=== PATIENT | male | born 1940 | race American Indian/Alaskan Native ===

== ENCOUNTER 2023-10-08 18:52 | Inpatient (IN) | payer MEDICARE, OTHER, SELFPAY ==
[2023-10-08 13:38] VITALS: BP 178/80
[2023-10-08 14:09] LABS: % Basophils 0.6 % (0-2); % Eosinophils 3.8 % (0-6); % Immature Granulocytes 0.4 % (0-0.5); % Lymphocytes 11.6 % (20.5-51.1); % Neutrophils 75.6 % (42.2-75.2); Absolute Eosinophils 0.2 10^3/uL (0-0.7); Absolute Lymphocytes 0.6 10^3/uL (1.2-3.4); Absolute Monocytes 0.4 10^3/uL (0.1-0.6); Hematocrit 25.7 % (39.0-52.0); Hemoglobin 8.6 g/dL (13.0-18.0); Mean Corp Hgb Conc. 33.5 g/dL (33.0-37.0); Mean Corpuscular Hgb 31.2 pg (27.0-31.0); Mean Corpuscular Volume 93.1 fL (80.0-94.0); Mean Platelet Volume 10.5 fL (7.4-10.4); Nucleated Red Blood Cells % 0 % (-); Platelet Count 150 10^3/uL (130-400); Red Blood Cell Count 2.76 10^6/uL (4.70-6.10); Red Cell Dist. Width 15.5 % (11.5-14.5); White Blood Cell Count 5.2 10^3/uL (4.8-10.8)
[2023-10-08 14:41] LABS: ALT (SGPT) 24 U/L (0-50); AST (SGOT) 36 U/L (17-59); Albumin 4.1 g/dl (3.5-5.0); Alkaline Phosphatase 74 U/L (38-126); Blood Urea Nitrogen 82 mg/dl (9-20); Calcium 10.2 mg/dl (8.4-10.2); Carbon Dioxide 29 mmol/L (22-30); Chloride 100 mmol/L (98-107); Glucose 108 mg/dl (70-99); Sodium 141 mmol/L (135-145); Total Bilirubin 0.6 mg/dl (0.2-1.3); Total Protein 6.2 g/dl (6.3-8.2); eGFR 3.28
--- NOTE | 2023-10-08 16:48 | CM ---
Received ED CM consult for new HD facility. Reviewed the chart notes and spoke with the patient at the bedside. Patient recently moved from [place] to [place]. Patient reports no DME/VN/SNF in the past. The patient has been with [facility] in [place]
for 15 years. Since he moved the [facility] facility is 10 miles from his home and he is requesting one that is within 5 miles. Patient's last HD was Sunday. Patient will need to be admitted to received HD and placement in another HD facility. CM
continues to be available to patient/family and is monitoring medical plan for needs at discharge.
Plan: Discharge to home once HD issues is resolved.
--- NOTE | 2023-10-08 17:43 | ED.GENMED ---
History of Present Illness
General
Chief Complaint: Weakness
Time Seen by Provider: 10/08/23 16:14
History of Present Illness
History of Present Illness:
83-year-old male with history of hypertension end-stage renal disease (HD MWF) presenting for hemodialysis needs. Patient relocated from [place], last dialyzed last Sunday, missed 2 sessions. [address] from [place], has no
hemodialysis session or [employer] service [employer] for follow-up. He presents for a dialysis center. He denies any chest pain breathing. He denies any recent fever or illness. He denies abdominal pain or GI symptoms. He denies additional acute medical
complaints
Phy Exam
Physical Exam
Physical Exam:
GENERAL: Alert , in no apparent distress
EYE: pupils equal and reactive
NECK: Supple, no significant adenopathy.
ENT: o/p clr, mmm.
CARDIAC: Regular rate and rhythm .
LUNGS: Clear breath sounds bilaterally, no acute respiratory distress, no wheezes/rales/rhonchi
ABDOMEN: Soft, without focal tenderness, no r/g
NEUROLOGICAL: Alert and oriented, no focal neuro deficits
SKIN: Warm and dry, skin intact.
MUSCULOSKELETAL: No edema, well perfused.
PSYCH: Normal and appropriate interaction.
Course
Orders/Labs/Results
Orders:
Orders
10/08/23 13:52
Complete Blood Count/With Diff Urgent
Comprehensive Metabolic Panel Urgent
10/08/23 14:57
ECG [Electrocardiogram (*1)] Urgent
Reason for Study: Other
Other Reason for Exam: abnormal labwork
EKG- Treatment ONCE
10/08/23 16:03
Case Management Consult ONCE
Case Management Consult: Discharge Planning
Comment: patient needs dialysis center closer to [place]. patient was going to [facility] in [place].
patient is unable to make that drive any longe. lian has not had dialysis for 6 days
Abnormal Lab Results
10/08/23
13:52
RBC 2.76 L 10^6/uL
(4.70-6.10)
Hgb 8.6 L g/dL
(13.0-18.0)
Hct 25.7 L %
(39.0-52.0)
MCH 31.2 H pg
(27.0-31.0)
RDW 15.5 H %
(11.5-14.5)
MPV 10.5 H fL
(7.4-10.4)
Absolute Lymphs (auto) 0.6 L 10^3/uL
(1.2-3.4)
Neutrophils % 75.6 H %
(42.2-75.2)
Lymphocytes % 11.6 L %
(20.5-51.1)
BUN 82 H mg/dl
(9-20)
Creatinine 13.6 H* mg/dL
(0.7-1.3)
Glucose 108 H mg/dl
(70-99)
Total Protein 6.2 L g/dl
(6.3-8.2)
10/08/23 13:52
10/08/23 13:52
Vital Signs
Initial and Last Documented VS:
Initial Vital Signs
Temp Pulse Resp BP Pulse Ox
98.4 F 77 18 178/80 98
10/08/23 13:38 10/08/23 13:38 10/08/23 13:38 10/08/23 13:38 10/08/23 13:38
Last Documented Vital Signs
Temp Pulse Resp BP Pulse Ox
98.4 F 77 18 178/80 98
10/08/23 13:38 10/08/23 13:38 10/08/23 13:38 10/08/23 13:38 10/08/23 13:38
MDM/Problems Addressed
MDM/Problems Addressed:
83-year-old male with history of end-stage renal disease presenting for hemodialysis needs. Vital signs significant for high blood pressure
On exam, patient well-appearing, no acute distress or discomfort. No clinical signs of volume overload. Plan for screening laboratory analysis, EKG, social work consultation for potential dialysis placement.
17:40-labs unremarkable. Social work unable to provide placement for patient for hemodialysis needs. Plan for observation admission for placement for hemodialysis center.
*EKG
Interpreted by ED Provider?: Yes
EKG Intrepretation Date: 10/08/23
EKG Intrepretation Time: 17:47
Interpretation: abnormal
Comparison EKG: no comparison EKG present
Heart Rate: 70
Rate: normal
Rhythm: sinus
[place]: left axis deviation
Interval: normal interval
QRS Pattern: normal QRS
Ischemia: non-specific ST changes
*Critical Care Note
Total Time (30-74mins, 75-104mins- exclusive of procedures): Not Applicable
ED Attending Note
-
Portions of this chart may have been created with voice recognition software.� Occasional wrong word or��sound alike� substitutions may have occurred due to the inherent limitations of voice recognition software.
Discharge Plan
Departure
Prescriptions:
No Action
carvedilol [Coreg] 6.25 mg Tablet
6.25 mg PO BID
atorvastatin [Lipitor] 20 mg Tablet
20 mg PO DAILY
tamsulosin [Flomax] 0.4 mg Capsule
0.4 mg PO DAILY
sertraline 50 mg Tablet
50 mg PO DAILY
sevelamer carbonate 800 mg Tablet
1,600 mg PO AC
Referrals:
UNKNOWN - PT DOES,NOT KNOW [Family Provider] -
Interventions
Interventions:
*Risk Screen - Suicide Last Done: 10/08/23 13:45
*General Assessment Last Done: 10/08/23 13:45
*Neglect/Abuse Screening Last Done: 10/08/23 13:45
ED- Fall Risk Assessment Last Done: 10/08/23 16:46
*ED COVID-19 Vaccine History Last Done: 10/08/23 16:46
ED- Cardiac Assessment Last Done: 10/08/23 16:46
ED- Neurological Assessment Last Done: 10/08/23 16:46
ED- Pulmonary Assessment Last Done: 10/08/23 16:46
Discharge Date and Time
Print Language: INDONESIAN
--- NOTE | 2023-10-08 18:04 | HPS.HSE ---
Family Physician
-
Family Physician: NOT KNOW UNKNOWN - PT DOES
Chief Complaint
-
here for HD
History of Present Illness
83-year-old male with history of hypertension end-stage renal disease (HD MWF), hyperlipidemia, hypertension, BPH now presents for dialysis needs. Patient has relocated from [place] with last dialysis session on last Sunday, in essence,
missing 2 HD sessions. Patient presents for HD set up. Otherwise denies any symptoms of shortness of breath, chest pain, fever, diarrhea. Patient hypertensive, hemoglobin 8.6. SCr - 13.6
Medical History
Past Medical History
Past Medical History: Reports HTN, Hypercholesterolemia, Renal Failure and Other (ESRD on HD, HLD, HTN, BPH)
Past Surgical History: Reports None
Social History
Tobacco: Non-smoker
Alcohol: Chronic Alcoholic
Family History
Family History: Not pertinent
Allergies / Home Medications
Allergies reflects when Allergies were last updated in [facility].
Home Medications with original date entered in [facility]
Allergy/Medication List:
Allergies
Allergy/AdvReac Type Severity Reaction Status Date / Time
No Known Allergies Allergy Unverified 10/08/23 13:38
Home Medications
atorvastatin 20 mg tablet (Lipitor) 20 mg PO DAILY 10/08/23
carvedilol 6.25 mg tablet (Coreg) 6.25 mg PO BID 10/08/23
sertraline 50 mg tablet 50 mg PO DAILY 10/08/23
sevelamer carbonate 800 mg tablet 1,600 mg PO AC 10/08/23
tamsulosin 0.4 mg capsule (Flomax) 0.4 mg PO DAILY 10/08/23
Review of Systems
-
A 12 point ROS was completed and negative except as noted: Yes
Physical Exam
Vital Signs
Vital Signs
Temp Pulse Resp BP Pulse Ox
98.4 F 77 18 178/80 98
07/01/24 13:38 10/08/23 13:38 10/08/23 13:38 10/08/23 13:38 10/08/23 13:38
Physical Exam
General: Well Developed and No Apparent Distress
HEENT: NormoCephalic
Respiratory: Clear
Cardiac: S1/S2 and Regular Rhythm
GI: Non Tender
Musculoskeletal: No Clubbing
Skin: Warm
Neuro: Awake, Alert, Oriented and AO x 3
Hematologic/Lymphatic: No Lymphadenopathy
Psych: Calm
Laboratory Results
-
10/08/23 13:52
10/08/23 13:52
Laboratory Results
Total Bilirubin 0.6 mg/dl (0.2-1.3) 10/08/23 13:52
AST 36 U/L (17-59) 10/08/23 13:52
ALT 24 U/L (0-50) 10/08/23 13:52
Alkaline Phosphatase 74 U/L (38-126) 10/08/23 13:52
Data Reviewed
-
Lab Data: Labs Reviewed by me
Impression/Plan
-
IMPRESSION:
83-year-old male with history of hypertension end-stage renal disease (HD MWF), hyperlipidemia, hypertension now presents for dialysis needs.
PLAN:
#ESRD on HD
-Renal Consulted
-F/u Hepatitis Panel, HIV
-Nephrology consulted for HD planning
-Cont Sevelamer carbonate
#Hypertension
-HD as per Renal
-Restart Coreg
#Hyperlipidemia
-statin
#Anemia
-most likely 2/2 to CKD
-F/u Iron labs, TSH
#BPH
-consult tamsulosin
#DVT ppx
hsq
[2023-10-08 19:04] VITALS: BP 182/87; BMI 21.8
[2023-10-08 20:01] LABS: Iron 80 ug/dl (49-181)
[2023-10-08 20:16] LABS: Percent Saturation 34 % (20-50); Total Iron Binding Capacity 234 ug/dl (261-462)
[2023-10-08] MEDS: COREG 6.25 MG PO (20:23)
[2023-10-08 21:08] LABS: TSH 6.94 uIU/ml (0.47-4.68)
[2023-10-08 21:09] LABS: Hepatitis B Surface Antigen Negative (Negative)
[2023-10-08 21:18] LABS: HIV Combo Negative (Negative)
[2023-10-08 21:27] LABS: Hepatitis C Antibody Negative (Negative); Vitamin B12 307 pg/ml (239-931)
--- NOTE | 2023-10-08 22:01 | PTCARENOTE ---
Patient arrived on unit @1915 via stretcher from ED, ambulate to bed with no issues. Patient AAOx3, [place], skin assessment completed. Patient denies any pain or discomfort, call cerda within reach.
[2023-10-08 22:50] LABS: Hepatitis B Surface Antibody Indeterminate
[2023-10-08 23:44] VITALS: BP 129/69
[2023-10-09] MEDS: HEPARIN SC ×4 (00:30→16:29)
[2023-10-09 06:00] VITALS: BMI 21.8
[2023-10-09 06:27] LABS: Hematocrit 23.3 % (39.0-52.0); Hemoglobin 7.8 g/dL (13.0-18.0); Mean Corp Hgb Conc. 33.5 g/dL (33.0-37.0); Mean Corpuscular Hgb 31.2 pg (27.0-31.0); Mean Corpuscular Volume 93.2 fL (80.0-94.0); Mean Platelet Volume 10.6 fL (7.4-10.4); Platelet Count 117 10^3/uL (130-400); Red Cell Dist. Width 15.2 % (11.5-14.5); White Blood Cell Count 4.6 10^3/uL (4.8-10.8)
[2023-10-09 06:52] LABS: ALT (SGPT) 19 U/L (0-50); AST (SGOT) 25 U/L (17-59); Albumin 3.2 g/dl (3.5-5.0); Alkaline Phosphatase 66 U/L (38-126); Blood Urea Nitrogen 87 mg/dl (9-20); Calcium 9.8 mg/dl (8.4-10.2); Carbon Dioxide 22 mmol/L (22-30); Chloride 105 mmol/L (98-107); Glucose 78 mg/dl (70-99); Phosphorus 4.9 mg/dl (2.5-4.5); Sodium 141 mmol/L (135-145); Total Bilirubin 0.5 mg/dl (0.2-1.3); Total Protein 5.1 g/dl (6.3-8.2)
[2023-10-09 07:02] LABS: Estimated Creatinine Clearance 3 ml/min; eGFR 2.87
[2023-10-09 07:53] VITALS: BP 186/85
[2023-10-09 08:45] VITALS: BP 175/69; PULSE 72; O2SAT 99
[2023-10-09] MEDS: COREG 6.25 MG PO ×2 (10:05→20:34)
[2023-10-09] MEDS: ZOLOFT 50 MG PO (10:05)
[2023-10-09] MEDS: FLOMAX 0.4 MG PO (10:06)
[2023-10-09] MEDS: LIPITOR 20 MG PO (10:06)
[2023-10-09] MEDS: RENVELA 1600 MG PO ×2 (10:06→16:29)
--- NOTE | 2023-10-09 10:17 | PTOTSP ---
Patient demonstrates good insight into safety with mobility, ambulation and elevations. Does not demonstrate further need for skilled therapy at this time and will be discharged from caseload.
If needs change, please re-consult.
--- NOTE | 2023-10-09 11:39 | CM ---
Addendum entered by Ave Ocampo 10/09/23 13:58:
Referral for HD sent to [facility] via [facility]. Called Max at [facility] - aware referral has been sent - will review when received
Original Note:
Case management following for d/c planning
Pt recently moved to [facility] from [place]
Previously followed for HD at [facility] in [place] and was to follow at [facility] in [place]. Per pt was informed [facility] that they had not received all of his clinical information. Came to ER
Spoke with visitor services representative at [facility]
Per rep - confirmed have not received H&P and was scheduled for 1st treatment to start on 10/09/2023
Per pt he would prefer an HD center closer to home
Spoke with Max at [facility] [phone]
Currently has open HD chairs and would be able to review clinical information and potentially accept pt
Discussed with pt and his - prefer [facility] location
CM will send demographic information and clinical information to [facility] for review
Plan - anticipate home when HD chair obtained
--- NOTE | 2023-10-09 12:52 | W.PN.HOSP.TC ---
Today's Communication/Plan
-
hd planning
add on free t4
Assessment / Plan
Assessment / Plan
Physical Exam
General: Well Developed and No Apparent Distress
HEENT: NormoCephalic
Respiratory: Clear
Cardiac: S1/S2 and Regular Rhythm
GI: Non Tender
Musculoskeletal: No Clubbing
Skin: Warm
Neuro: Awake, Alert, Oriented and AO x 3
Hematologic/Lymphatic: No Lymphadenopathy
Psych: Calm
83-year-old male with history of hypertension end-stage renal disease (HD MWF), hyperlipidemia, hypertension now presents for dialysis needs.
PLAN:
#ESRD on HD
-Renal Consulted
-F/u Hepatitis Panel, HIV
-Nephrology consulted for HD planning
-Cont Sevelamer carbonate
#Hypertension
-HD as per Renal
-Restart Coreg
#Hyperlipidemia
-statin
#Anemia
-most likely 2/2 to CKD
-f/u free t4
#BPH
-consult tamsulosin
#DVT ppx
hsq
Anticipated Discharge: 24 - 48 hours
Subjective/Interval History
-
Date of Service: October 09, 2023
no acute events
Objective Data
-
Labs:
Laboratory Results
10/09/23
05:49
WBC 4.6 L
Hgb 7.8 L
Hct 23.3 L
Plt Count 117 L D
Sodium 141
Potassium 5.0
Chloride 105
Carbon Dioxide 22
BUN 87 H
Creatinine 15.2 H*
Glucose 78
Calcium 9.8
Total Bilirubin 0.5
AST 25
ALT 19
Alkaline Phosphatase 66
Vital Signs:
Vital Signs
Temp Pulse Resp BP Pulse Ox
98.3 F 86 17 186/85 95
10/09/23 07:53 10/09/23 07:53 10/09/23 07:53 10/09/23 07:53 10/09/23 07:53
I&O
10/08/23 10/09/23 10/10/23
06:59 06:59 06:59
Intake Total 120 / 120
Balance 120 / 120
Review of Systems
-
History Source: Patient
All other systems: Not reviewed unless documented
Data Reviewed
-
Labs: Labs Reviewed by me
[2023-10-09] MEDS: RENVELA PO (13:36)
[2023-10-09] MEDS: RETACRIT 10000 UNITS IV (13:40)
--- NOTE | 2023-10-09 13:44 | PTCARENOTE ---
Patient ambulating into [facility]. Patient has no c/o pain and is eager for HD.
[2023-10-09 15:24] LABS: Free T4 1.26 ng/dl (0.78-2.19)
[2023-10-09 15:58] VITALS: BP 176/79
--- NOTE | 2023-10-09 18:28 | W.PN.NEPH.HD ---
Assessment
-
Seen on HD. no complaints. VSS< access ok
Progress Note - Hemodialysis
-
Date of Service: October 09, 2023
Duration: 3 hours
Potassium Bath: 2
Calcium Bath: 2.5
Opti-Dialyzer: 160
Ultrafiltration: Other (1kg)
Blood Flow: 400
Dialysate Flow: 600
Heparin: no
EPO: [id number] units
[2023-10-09 23:44] VITALS: BP 162/70
[2023-10-10] MEDS: HEPARIN SC ×4 (00:45→17:15)
[2023-10-10 05:35] VITALS: BMI 21.3
[2023-10-10 06:17] LABS: Hematocrit 25.1 % (39.0-52.0); Hemoglobin 8.1 g/dL (13.0-18.0); Mean Corp Hgb Conc. 32.3 g/dL (33.0-37.0); Mean Corpuscular Hgb 30.5 pg (27.0-31.0); Mean Corpuscular Volume 94.4 fL (80.0-94.0); Mean Platelet Volume 10.2 fL (7.4-10.4); Platelet Count 114 10^3/uL (130-400); Red Blood Cell Count 2.66 10^6/uL (4.70-6.10); Red Cell Dist. Width 14.8 % (11.5-14.5); White Blood Cell Count 4.3 10^3/uL (4.8-10.8)
[2023-10-10 06:55] LABS: Blood Urea Nitrogen 48 mg/dl (9-20); Calcium 9.2 mg/dl (8.4-10.2); Carbon Dioxide 31 mmol/L (22-30); Chloride 98 mmol/L (98-107); Estimated Creatinine Clearance 6 ml/min; Glucose 81 mg/dl (70-99); Potassium 4.4 mmol/L (3.5-5.1); Sodium 137 mmol/L (135-145); eGFR 5.24
[2023-10-10 07:00] VITALS: BP 158/64
[2023-10-10] MEDS: RETACRIT 10000 UNITS IV (08:46)
--- NOTE | 2023-10-10 08:54 | W.PN.HOSP.TC ---
Addendum entered and electronically signed by Ari Baird MD 10/10/23 16:03:
Pancytopenia
mild
monitor
Original Note:
Today's Communication/Plan
-
hd placement planning
hd today
Assessment / Plan
Assessment / Plan
Physical Exam
General: Well Developed and No Apparent Distress
HEENT: NormoCephalic
Respiratory: Clear
Cardiac: S1/S2 and Regular Rhythm
GI: Non Tender
Musculoskeletal: No Clubbing
Skin: Warm
Neuro: Awake, Alert, Oriented and AO x 3
Hematologic/Lymphatic: No Lymphadenopathy
Psych: Calm
83-year-old male with history of hypertension end-stage renal disease (HD MWF), hyperlipidemia, hypertension now presents for dialysis needs.
PLAN:
#ESRD on HD
-Renal Consulted
-F/u Hepatitis Panel neg
-Nephrology consulted for HD planning
-Cont Sevelamer carbonate
#Hypertension
-HD as per Renal
-Restart Coreg
#Hyperlipidemia
-statin
#Anemia
-most likely 2/2 to CKD
#BPH
-consult tamsulosin
#DVT ppx
hsq
Anticipated Discharge: Within 24 hours
Subjective/Interval History
-
Date of Service: October 10, 2023
No acute events
Objective Data
-
Labs:
Laboratory Results
10/10/23
05:54
WBC 4.3 L
Hgb 8.1 L
Hct 25.1 L
Plt Count 114 L
Sodium 137
Potassium 4.4
Chloride 98
Carbon Dioxide 31 H
BUN 48 H
Creatinine 9.2 H*
Glucose 81
Calcium 9.2
Vital Signs:
Vital Signs
Temp Pulse Resp BP Pulse Ox
98.5 F 68 18 158/64 93
10/10/23 07:00 10/10/23 07:00 10/10/23 07:00 10/10/23 07:00 10/10/23 07:00
I&O
10/09/23 10/10/23 10/11/23
06:59 06:59 06:59
Intake Total 120 / 120 780 / 780
Balance 120 / 120 780 / 780
Review of Systems
-
History Source: Patient
All other systems: Not reviewed unless documented
Data Reviewed
-
Labs: Labs Reviewed by me
--- NOTE | 2023-10-10 08:54 | PN.CDI ---
CDI
- -
CDI:
Physician Documentation Request
Admit Date: 10/08/23 18:52
Dear Doctor Brie,
Please review the following and provide your response in the progress notes.
Clinical Indicators:
Laboratory Tests
10/08/23 10/09/23 10/10/23
13:52 05:49 05:54
WBC 5.2 4.6 L 4.3 L
RBC 2.76 L 2.50 L 2.66 L
Plt Count 150 117 L D 114 L
Based on the above and your clinical assessment, please clarify in the progress notes, the appropriate diagnosis, if significant, that supports the above abnormalities and additional evaluation, monitoring and/or treatment rendered:
Pancytopenia
Other pancytopenia
Abnormal lab values, clinically insignificant
Other(please specify)
Use of terms such as suspected, likely, concern for, or probable (associated with a specific diagnosis that is being evaluated, monitored, or treated as if it exists) are acceptable and can be coded in the inpatient setting, when documented at the
time of discharge.
Thank you,
Abby Farley RN BSN CCDS
CDI Specialist
please contact via tiger text
Please use your independent medical judgment in providing your response.
--- NOTE | 2023-10-10 10:55 | W.PN.NEPH.HD ---
Assessment
-
Seen on HD. no complaints. VSS, access ok
await OP HD plans
Progress Note - Hemodialysis
-
Date of Service: October 10, 2023
Duration: 3 hours
Potassium Bath: 2
Calcium Bath: 2.5
Opti-Dialyzer: 160
Ultrafiltration: Other (1kg)
Blood Flow: 400
Dialysate Flow: 600
Heparin: no
EPO: [id number] units
[2023-10-10] MEDS: ZOLOFT 50 MG PO (11:36)
[2023-10-10] MEDS: RENVELA PO (11:36)
[2023-10-10] MEDS: RENVELA 1600 MG PO ×2 (11:36→17:16)
[2023-10-10] MEDS: FLOMAX 0.4 MG PO (11:36)
[2023-10-10] MEDS: COREG 6.25 MG PO ×2 (11:36→21:13)
[2023-10-10] MEDS: LIPITOR 20 MG PO (11:37)
--- NOTE | 2023-10-10 14:01 | CM ---
Case management following for d/c planning
Clinical information and HD sheets sent to [facility] in [facility]
Spoke with safety representative at [facility]
Discussed pts recent move to [place] and need to obtain previous records
Requesting H&P and records be sent to [facility]
Per Amy - would need to obtain from previous facility
Spoke with Kacie at [facility] - pt was not officially accepted at facility
They do have records and will fax to [facility]
Spoke with Blossom at [facility] [phone]
Have clinicals and to be reviewed by director
Plan - anticipate home when HD chair time obtained at HD facility
[2023-10-10 14:15] VITALS: BP 123/57
--- NOTE | 2023-10-10 14:19 | PTCARENOTE ---
Patient called RN into room stating he threw up in the bathroom and felt weak. RN saw watery, pink tinged emesis on the bathroom floor that he endorsed was from vomting. RN took vital signs- bp 123/57, HR 50, 98% room air, temp 97.8. Pt is walking
around room and steady on feet, he is stating as the time goes by he feels stronger. RN let hospitalist know. Pt said he 'vomits a few hours after dialysis once as week usually'. RN asked patient to let her know if he feels sick again. Call cerda
within reach.
[2023-10-10 15:00] VITALS: BP 94/60
[2023-10-10 23:44] VITALS: BP 153/54
[2023-10-11] MEDS: HEPARIN 5000 UNITS SC ×3 (01:16→17:05)
[2023-10-11 06:00] VITALS: BMI 20.5
[2023-10-11 06:09] LABS: Hematocrit 26.8 % (39.0-52.0); Hemoglobin 9.1 g/dL (13.0-18.0); Mean Corpuscular Hgb 30.8 pg (27.0-31.0); Mean Corpuscular Volume 90.8 fL (80.0-94.0); Mean Platelet Volume 10.2 fL (7.4-10.4); Platelet Count 128 10^3/uL (130-400); Red Blood Cell Count 2.95 10^6/uL (4.70-6.10); Red Cell Dist. Width 14.6 % (11.5-14.5); White Blood Cell Count 4.9 10^3/uL (4.8-10.8)
[2023-10-11 06:22] LABS: Blood Urea Nitrogen 29 mg/dl (9-20); Calcium 9.2 mg/dl (8.4-10.2); Carbon Dioxide 32 mmol/L (22-30); Chloride 96 mmol/L (98-107); Estimated Creatinine Clearance 8 ml/min; Glucose 85 mg/dl (70-99); Potassium 3.9 mmol/L (3.5-5.1); Sodium 136 mmol/L (135-145); eGFR 7.95
[2023-10-11 07:30] VITALS: BP 186/78
[2023-10-11] MEDS: RENVELA 1600 MG PO ×3 (08:46→17:05)
[2023-10-11] MEDS: FLOMAX 0.4 MG PO (08:46)
[2023-10-11] MEDS: LIPITOR 20 MG PO (08:46)
[2023-10-11] MEDS: ZOLOFT 50 MG PO (08:47)
[2023-10-11] MEDS: COREG 6.25 MG PO ×2 (08:47→21:15)
--- NOTE | 2023-10-11 09:05 | W.PN.HOSP.TC ---
Today's Communication/Plan
-
Start Nifedipine
OP HD planning
Assessment / Plan
Assessment / Plan
Physical Exam
General: Well Developed and No Apparent Distress
HEENT: NormoCephalic
Respiratory: Clear
Cardiac: S1/S2 and Regular Rhythm
GI: Non Tender
Musculoskeletal: No Clubbing
Skin: Warm
Neuro: Awake, Alert, Oriented and AO x 3
Hematologic/Lymphatic: No Lymphadenopathy
Psych: Calm
83-year-old male with history of hypertension end-stage renal disease (HD MWF), hyperlipidemia, hypertension now presents for dialysis needs.
PLAN:
#ESRD on HD
-Renal Consulted
-F/u Hepatitis Panel neg
-Nephrology consulted for HD planning
-Cont Sevelamer carbonate
#Hypertension
-HD as per Renal
-Restart Coreg
-Start Nifedipine
#Hyperlipidemia
-statin
#Anemia
-most likely 2/2 to CKD
#BPH
-consult tamsulosin
#DVT ppx
hsq
Anticipated Discharge: 24 - 48 hours
Subjective/Interval History
-
Date of Service: October 11, 2023
No acute events
Objective Data
-
Labs:
Laboratory Results
10/11/23
05:41
WBC 4.9
Hgb 9.1 L
Hct 26.8 L
Plt Count 128 L
Sodium 136
Potassium 3.9
Chloride 96 L
Carbon Dioxide 32 H
BUN 29 H
Creatinine 6.5 H*
Glucose 85
Calcium 9.2
Vital Signs:
Vital Signs
Temp Pulse Resp BP Pulse Ox
98.4 F 75 18 186/78 98
10/11/23 07:30 10/11/23 07:30 10/11/23 07:30 10/11/23 07:30 10/11/23 07:30
I&O
10/10/23 10/11/23 10/12/23
06:59 06:59 06:59
Intake Total 780 / 780 720 / 720
Balance 780 / 780 720 / 720
Review of Systems
-
History Source: Patient
All other systems: Not reviewed unless documented
Data Reviewed
-
Labs: Labs Reviewed by me
--- NOTE | 2023-10-11 10:31 | W.PN.NEPH.PH ---
Today's Communication / Plan
-
Dialysis tomorrow
Assessment/Plan
-
ESRD
Hyperphosphatemia
Hypertension
Anemia
BPH
Dyslipidemia
Plan:
HD tomorrow, orders provided
Maintain sevelamer for hyperphosphatemia
Maintain carvedilol and nifedipine for labile hypertension
ALETA therapy titrated for anemia
-
-
Date of Service: October 11, 2023
CC / HPI / ROS
-
Chief Complaint:
ESRD
History of Present Illness:
Hemodynamically labile on antihypertensives
End-stage renal disease on Sunday schedule
Review of Systems:
No chest pain or shortness of breath
Labs
-
Labs:
WBC 4.9 10^3/uL (4.8-10.8) 10/11/23 05:41
RBC 2.95 10^6/uL (4.70-6.10) L 10/11/23 05:41
Hgb 9.1 g/dL (13.0-18.0) L 10/11/23 05:41
Hct 26.8 % (39.0-52.0) L 10/11/23 05:41
Plt Count 128 10^3/uL (130-400) L 10/11/23 05:41
Sodium 136 mmol/L (135-145) 10/11/23 05:41
Potassium 3.9 mmol/L (3.5-5.1) 10/11/23 05:41
Chloride 96 mmol/L (98-107) L 10/11/23 05:41
Carbon Dioxide 32 mmol/L (22-30) H 10/11/23 05:41
BUN 29 mg/dl (9-20) H 10/11/23 05:41
Creatinine 6.5 mg/dL (0.7-1.3) H* 10/11/23 05:41
eGFR 7.95 10/11/23 05:41
Glucose 85 mg/dl (70-99) 10/11/23 05:41
Calcium 9.2 mg/dl (8.4-10.2) 10/11/23 05:41
Phosphorus 4.9 mg/dl (2.5-4.5) H 10/09/23 05:49
Albumin 3.2 g/dl (3.5-5.0) L 10/09/23 05:49
Physical Exam
-
Vital Signs:
Vital Signs
Temp Pulse Resp BP Pulse Ox
98.4 F 75 18 186/78 98
10/11/23 07:30 10/11/23 07:30 10/11/23 07:30 10/11/23 07:30 10/11/23 07:30
Cardiovascular:: Regular rate and rhythm
Respiratory:: Bilateral: CTA
Lung Excursion:: Normal
Abdomen:: Nontender and Soft
Bowel Sounds:: Normal
Extremity Edema:: None: Bilateral:
Shaw Catheter: No
[2023-10-11] MEDS: PROCARDIA XL (EXTENDED RELEASE) 30 MG PO (11:33)
[2023-10-11 15:50] VITALS: BP 138/59
[2023-10-11 23:23] VITALS: BP 185/64
[2023-10-12] MEDS: HEPARIN 5000 UNITS SC ×4 (00:09→23:13)
[2023-10-12 06:00] VITALS: BMI 20.7
[2023-10-12 06:22] LABS: Hematocrit 24.5 % (39.0-52.0); Hemoglobin 8.4 g/dL (13.0-18.0); Mean Corp Hgb Conc. 34.3 g/dL (33.0-37.0); Mean Corpuscular Hgb 31.3 pg (27.0-31.0); Mean Corpuscular Volume 91.4 fL (80.0-94.0); Mean Platelet Volume 10.6 fL (7.4-10.4); Platelet Count 127 10^3/uL (130-400); Red Blood Cell Count 2.68 10^6/uL (4.70-6.10); Red Cell Dist. Width 14.6 % (11.5-14.5); White Blood Cell Count 5.3 10^3/uL (4.8-10.8)
[2023-10-12 06:51] LABS: Blood Urea Nitrogen 49 mg/dl (9-20); Calcium 9.2 mg/dl (8.4-10.2); Carbon Dioxide 32 mmol/L (22-30); Chloride 95 mmol/L (98-107); Estimated Creatinine Clearance 6 ml/min; Glucose 90 mg/dl (70-99); Potassium 4.2 mmol/L (3.5-5.1); Sodium 135 mmol/L (135-145); eGFR 5.45
[2023-10-12 07:31] VITALS: BP 166/65
--- NOTE | 2023-10-12 07:55 | W.PN.HOSP.TC ---
Today's Communication/Plan
-
antihypertensive control
OP HD planning
Assessment / Plan
Assessment / Plan
Physical Exam
General: Well Developed and No Apparent Distress
HEENT: NormoCephalic
Respiratory: Clear
Cardiac: S1/S2 and Regular Rhythm
GI: Non Tender
Musculoskeletal: No Clubbing
Skin: Warm
Neuro: Awake, Alert, Oriented and AO x 3
Hematologic/Lymphatic: No Lymphadenopathy
Psych: Calm
83-year-old male with history of hypertension end-stage renal disease (HD MWF), hyperlipidemia, hypertension now presents for dialysis needs.
PLAN:
#ESRD on HD
-Renal Consulted
-F/u Hepatitis Panel neg
-Nephrology consulted for HD planning
-Cont Sevelamer carbonate
#Hypertension
-HD as per Renal
-Restart Coreg
-Start Nifedipine
#Hyperlipidemia
-statin
#Anemia
-most likely 2/2 to CKD
#BPH
-consult tamsulosin
#DVT ppx
hsq
Anticipated Discharge: Within 24 hours
Subjective/Interval History
-
Date of Service: October 12, 2023
no acute events
Objective Data
-
Labs:
Laboratory Results
10/12/23
05:49
WBC 5.3
Hgb 8.4 L
Hct 24.5 L
Plt Count 127 L
Sodium 135
Potassium 4.2
Chloride 95 L
Carbon Dioxide 32 H
BUN 49 H
Creatinine 8.9 H*
Glucose 90
Calcium 9.2
Vital Signs:
Vital Signs
Temp Pulse Resp BP Pulse Ox
97.9 F 64 16 166/65 95
10/12/23 07:31 10/12/23 07:31 10/12/23 07:31 10/12/23 07:31 10/12/23 07:31
I&O
10/11/23 10/12/23 10/13/23
06:59 06:59 06:59
Intake Total 720 / 720 600 / 600
Balance 720 / 720 600 / 600
Review of Systems
-
History Source: Patient
All other systems: Not reviewed unless documented
Data Reviewed
-
Labs: Labs Reviewed by me
[2023-10-12] MEDS: RENVELA PO (08:12)
--- NOTE | 2023-10-12 08:50 | W.PN.NEPH.HD ---
Assessment
-
Patient seen on dialysis
Systolic blood pressure stable on dialysis
Possible discharge today after dialysis if outpatient clinic arrangements completed
Progress Note - Hemodialysis
-
Date of Service: October 12, 2023
Duration: 3 hours
Potassium Bath: 2
Calcium Bath: 2.5
Opti-Dialyzer: Other
Ultrafiltration: Other (none)
Blood Flow: 400
Dialysate Flow: 600
Heparin: none
EPO: 10K
[2023-10-12] MEDS: RETACRIT 10000 UNITS IV (09:04)
[2023-10-12] MEDS: LIPITOR 20 MG PO (11:12)
[2023-10-12] MEDS: FLOMAX 0.4 MG PO (11:12)
[2023-10-12] MEDS: PROCARDIA XL (EXTENDED RELEASE) 30 MG PO (11:12)
[2023-10-12] MEDS: RENVELA 1600 MG PO ×3 (11:12→17:47)
[2023-10-12] MEDS: COREG 6.25 MG PO ×2 (11:12→20:27)
[2023-10-12] MEDS: ZOLOFT 50 MG PO (11:13)
--- NOTE | 2023-10-12 12:55 | CM ---
Addendum entered by Ave Ocampo 10/12/23 16:10:
Spoke with Blossom to check status of HD chair
Remains under review per Blossom at [facility]
Pt aware
Original Note:
Case management following for d/c planning
Called Blossom at [facility] for update regarding HD chair
Reports she will check on status - under review by medical technologist and return call
Plan - anticipate d/c to home when OP HD chair obtained
[2023-10-12 15:15] VITALS: BP 128/47
--- NOTE | 2023-10-12 18:13 | PTCARENOTE ---
Patient is frustrated and discouraged today. He is desperate to go home, but still waiting for HD approval at outpatient site. Patient is independent in room. Much emotional support given.
[2023-10-12 23:00] VITALS: BP 142/67
[2023-10-13 06:00] VITALS: BMI 20.3
[2023-10-13 07:00] VITALS: BP 154/65
[2023-10-13] MEDS: LIPITOR 20 MG PO (09:13)
[2023-10-13] MEDS: RENVELA 1600 MG PO ×2 (09:13→16:52)
[2023-10-13] MEDS: HEPARIN 5000 UNITS SC ×2 (09:13→16:52)
[2023-10-13] MEDS: FLOMAX 0.4 MG PO (09:13)
[2023-10-13] MEDS: COREG 6.25 MG PO ×2 (09:14→20:13)
[2023-10-13] MEDS: ZOLOFT 50 MG PO (09:14)
[2023-10-13] MEDS: PROCARDIA XL (EXTENDED RELEASE) 30 MG PO (10:04)
[2023-10-13 10:25] LABS: Hematocrit 28.1 % (39.0-52.0); Hemoglobin 9.1 g/dL (13.0-18.0); Mean Corp Hgb Conc. 32.4 g/dL (33.0-37.0); Mean Corpuscular Hgb 30.4 pg (27.0-31.0); Mean Platelet Volume 10.4 fL (7.4-10.4); Platelet Count 153 10^3/uL (130-400); Red Blood Cell Count 2.99 10^6/uL (4.70-6.10); Red Cell Dist. Width 14.6 % (11.5-14.5)
--- NOTE | 2023-10-13 10:33 | W.PN.NEPH.PH ---
Today's Communication / Plan
-
Observe
Discharge planning in progress
Next dialysis will be on Sunday
Assessment/Plan
-
ESRD
Hyperphosphatemia
Hypertension
Anemia
BPH
Dyslipidemia
Plan:
HD Sunday, preferably at [facility] once approval obtained
Maintain sevelamer for hyperphosphatemia
Maintain carvedilol and nifedipine for labile hypertension
ALETA therapy titrated for anemia
-
-
Date of Service: October 13, 2023
CC / HPI / ROS
-
Chief Complaint:
ESRD
History of Present Illness:
Hemodynamically stable on antihypertensives
End-stage renal disease on Sunday schedule
Review of Systems:
No chest pain or shortness of breath
Labs
-
Labs:
WBC 4.0 10^3/uL (4.8-10.8) L 10/13/23 09:50
RBC 2.99 10^6/uL (4.70-6.10) L 10/13/23 09:50
Hgb 9.1 g/dL (13.0-18.0) L 10/13/23 09:50
Hct 28.1 % (39.0-52.0) L 10/13/23 09:50
Plt Count 153 10^3/uL (130-400) D 10/13/23 09:50
eGFR 5.45 10/12/23 05:49
Phosphorus 4.9 mg/dl (2.5-4.5) H 10/09/23 05:49
Albumin 3.2 g/dl (3.5-5.0) L 10/09/23 05:49
Physical Exam
-
Vital Signs:
Vital Signs
Temp Pulse Resp BP Pulse Ox
98.1 F 69 16 154/65 96
10/13/23 07:00 10/13/23 07:00 10/13/23 07:00 10/13/23 07:00 10/13/23 07:00
Cardiovascular:: Regular rate and rhythm
Respiratory:: Bilateral: CTA
Lung Excursion:: Normal
Abdomen:: Nontender and Soft
Bowel Sounds:: Normal
Extremity Edema:: None: Bilateral:
Shaw Catheter: No
[2023-10-13 11:13] LABS: Blood Urea Nitrogen 34 mg/dl (9-20); Calcium 9.8 mg/dl (8.4-10.2); Carbon Dioxide 31 mmol/L (22-30); Chloride 95 mmol/L (98-107); Estimated Creatinine Clearance 7 ml/min; Glucose 90 mg/dl (70-99); Sodium 136 mmol/L (135-145); eGFR 7.15
[2023-10-13] MEDS: RENVELA PO (12:52)
--- NOTE | 2023-10-13 12:54 | W.PN.HOSP.TC ---
Today's Communication/Plan
-
OP HD planning
Assessment / Plan
Assessment / Plan
Physical Exam
General: Well Developed and No Apparent Distress
HEENT: NormoCephalic
Respiratory: Clear
Cardiac: S1/S2 and Regular Rhythm
GI: Non Tender
Musculoskeletal: No Clubbing
Skin: Warm
Neuro: Awake, Alert, Oriented and AO x 3
Hematologic/Lymphatic: No Lymphadenopathy
Psych: Calm
83-year-old male with history of hypertension end-stage renal disease (HD MWF), hyperlipidemia, hypertension now presents for dialysis needs.
PLAN:
#ESRD on HD
-Renal Consulted
-F/u Hepatitis Panel neg
-Nephrology consulted for HD planning
-Cont Sevelamer carbonate
#Hypertension
-HD as per Renal
-Restart Coreg
-Start Nifedipine
#Hyperlipidemia
-statin
#Anemia
-most likely 2/2 to CKD
#BPH
-consult tamsulosin
#DVT ppx
hsq
Anticipated Discharge: 24 - 48 hours
Subjective/Interval History
-
Date of Service: October 13, 2023
No acute events overnight
Objective Data
-
Labs:
Laboratory Results
10/13/23
09:50
WBC 4.0 L
Hgb 9.1 L
Hct 28.1 L
Plt Count 153 D
Sodium 136
Potassium 4.0
Chloride 95 L
Carbon Dioxide 31 H
BUN 34 H
Creatinine 7.1 H*
Glucose 90
Calcium 9.8
Vital Signs:
Vital Signs
Temp Pulse Resp BP Pulse Ox
98.1 F 69 16 154/65 96
10/13/23 07:00 10/13/23 07:00 10/13/23 07:00 10/13/23 07:00 10/13/23 07:00
I&O
10/12/23 10/13/23 10/14/23
06:59 06:59 06:59
Intake Total 600 / 600 840 / 840
Balance 600 / 600 840 / 840
Review of Systems
-
History Source: Patient
All other systems: Not reviewed unless documented
Data Reviewed
-
Labs: Labs Reviewed by me
[2023-10-13 15:00] VITALS: BP 166/67
[2023-10-13 23:00] VITALS: BP 157/65
[2023-10-14] MEDS: HEPARIN 5000 UNITS SC ×4 (00:14→23:23)
[2023-10-14 05:31] LABS: Hematocrit 25.9 % (39.0-52.0); Hemoglobin 8.7 g/dL (13.0-18.0); Mean Corp Hgb Conc. 33.6 g/dL (33.0-37.0); Mean Corpuscular Hgb 31.2 pg (27.0-31.0); Mean Corpuscular Volume 92.8 fL (80.0-94.0); Mean Platelet Volume 9.7 fL (7.4-10.4); Platelet Count 156 10^3/uL (130-400); Red Blood Cell Count 2.79 10^6/uL (4.70-6.10); Red Cell Dist. Width 14.4 % (11.5-14.5); White Blood Cell Count 4.8 10^3/uL (4.8-10.8)
[2023-10-14 05:59] LABS: Blood Urea Nitrogen 48 mg/dl (9-20); Calcium 9.6 mg/dl (8.4-10.2); Carbon Dioxide 28 mmol/L (22-30); Chloride 99 mmol/L (98-107); Estimated Creatinine Clearance 5 ml/min; Glucose 101 mg/dl (70-99); Potassium 4.1 mmol/L (3.5-5.1); Sodium 138 mmol/L (135-145); eGFR 5.45
[2023-10-14 06:00] VITALS: BMI 20.3
[2023-10-14 07:00] VITALS: BP 156/63
[2023-10-14] MEDS: LIPITOR 20 MG PO (08:55)
[2023-10-14] MEDS: COREG 6.25 MG PO ×2 (08:55→20:18)
[2023-10-14] MEDS: ZOLOFT 50 MG PO (08:55)
[2023-10-14] MEDS: PROCARDIA XL (EXTENDED RELEASE) 30 MG PO (08:55)
[2023-10-14] MEDS: FLOMAX 0.4 MG PO (08:55)
[2023-10-14] MEDS: RENVELA 1600 MG PO ×2 (09:03→12:54)
--- NOTE | 2023-10-14 11:11 | W.PN.NEPH.PH ---
Today's Communication / Plan
-
Dialysis tomorrow
Assessment/Plan
-
Impression
ESRD (MWF)
Hyperphosphatemia
Hypertension
Anemia
BPH
Dyslipidemia
Plan:
HD Sunday, preferably at [facility] once approval obtained
Maintain sevelamer for hyperphosphatemia
Maintain carvedilol and nifedipine for labile hypertension
ALETA therapy titrated for anemia
-
-
Date of Service: October 14, 2023
CC / HPI / ROS
-
Chief Complaint:
ESRD
History of Present Illness:
Hemodynamically stable on antihypertensives
End-stage renal disease on Sunday schedule
Review of Systems:
No chest pain or shortness of breath
Labs
-
Labs:
WBC 4.8 10^3/uL (4.8-10.8) 10/14/23 05:15
RBC 2.79 10^6/uL (4.70-6.10) L 10/14/23 05:15
Hgb 8.7 g/dL (13.0-18.0) L 10/14/23 05:15
Hct 25.9 % (39.0-52.0) L 10/14/23 05:15
Plt Count 156 10^3/uL (130-400) 10/14/23 05:15
Sodium 138 mmol/L (135-145) 10/14/23 05:15
Potassium 4.1 mmol/L (3.5-5.1) 10/14/23 05:15
Chloride 99 mmol/L (98-107) 10/14/23 05:15
Carbon Dioxide 28 mmol/L (22-30) 10/14/23 05:15
BUN 48 mg/dl (9-20) H 10/14/23 05:15
Creatinine 8.9 mg/dL (0.7-1.3) H* 10/14/23 05:15
eGFR 5.45 10/14/23 05:15
Glucose 101 mg/dl (70-99) H 10/14/23 05:15
Calcium 9.6 mg/dl (8.4-10.2) 10/14/23 05:15
Phosphorus 4.9 mg/dl (2.5-4.5) H 10/09/23 05:49
Albumin 3.2 g/dl (3.5-5.0) L 10/09/23 05:49
Physical Exam
-
Vital Signs:
Vital Signs
Temp Pulse Resp BP Pulse Ox
97.9 F 71 16 156/63 97
10/14/23 07:00 10/14/23 07:00 10/14/23 07:00 10/14/23 07:00 10/14/23 07:00
Cardiovascular:: Regular rate and rhythm
Respiratory:: Bilateral: CTA
Lung Excursion:: Normal
Abdomen:: Nontender and Soft
Bowel Sounds:: Normal
Extremity Edema:: None: Bilateral:
Shaw Catheter: No
--- NOTE | 2023-10-14 14:13 | W.PN.HOSP.TC ---
Today's Communication/Plan
-
OP HD planning
Assessment / Plan
Assessment / Plan
Physical Exam
General: Well Developed and No Apparent Distress
HEENT: NormoCephalic
Respiratory: Clear
Cardiac: S1/S2 and Regular Rhythm
GI: Non Tender
Musculoskeletal: No Clubbing
Skin: Warm
Neuro: Awake, Alert, Oriented and AO x 3
Hematologic/Lymphatic: No Lymphadenopathy
Psych: Calm
83-year-old male with history of hypertension end-stage renal disease (HD MWF), hyperlipidemia, hypertension now presents for dialysis needs.
PLAN:
#ESRD on HD
-Renal Consulted
-F/u Hepatitis Panel neg
-Nephrology consulted for HD planning
-Cont Sevelamer carbonate
#Hypertension
-HD as per Renal
-Restart Coreg
-Start Nifedipine
#Hyperlipidemia
-statin
#Anemia
-most likely 2/2 to CKD
#BPH
-consult tamsulosin
#DVT ppx
hsq
Anticipated Discharge: 24 - 48 hours
Subjective/Interval History
-
Date of Service: October 14, 2023
no acute events
Objective Data
-
Labs:
Laboratory Results
10/14/23
05:15
WBC 4.8
Hgb 8.7 L
Hct 25.9 L
Plt Count 156
Sodium 138
Potassium 4.1
Chloride 99
Carbon Dioxide 28
BUN 48 H
Creatinine 8.9 H*
Glucose 101 H
Calcium 9.6
Vital Signs:
Vital Signs
Temp Pulse Resp BP Pulse Ox
97.9 F 71 16 156/63 97
10/14/23 07:00 10/14/23 07:00 10/14/23 07:00 10/14/23 07:00 10/14/23 07:00
I&O
10/13/23 10/14/23 10/15/23
06:59 06:59 06:59
Intake Total 840 / 840 1200 / 1200
Balance 840 / 840 1200 / 1200
Review of Systems
-
History Source: Patient
All other systems: Not reviewed unless documented
Data Reviewed
-
Labs: Labs Reviewed by me
[2023-10-14 15:00] VITALS: BP 135/64
[2023-10-14] MEDS: RENVELA PO (17:33)
[2023-10-14 23:15] VITALS: BP 156/62
[2023-10-15 05:28] VITALS: BMI 20.5
[2023-10-15 06:20] LABS: Hemoglobin 8.4 g/dL (13.0-18.0); Mean Corp Hgb Conc. 33.6 g/dL (33.0-37.0); Mean Corpuscular Hgb 30.7 pg (27.0-31.0); Mean Corpuscular Volume 91.2 fL (80.0-94.0); Mean Platelet Volume 10.1 fL (7.4-10.4); Platelet Count 161 10^3/uL (130-400); Red Blood Cell Count 2.74 10^6/uL (4.70-6.10); Red Cell Dist. Width 14.6 % (11.5-14.5); White Blood Cell Count 4.4 10^3/uL (4.8-10.8)
[2023-10-15 06:39] LABS: Blood Urea Nitrogen 67 mg/dl (9-20); Calcium 9.4 mg/dl (8.4-10.2); Carbon Dioxide 27 mmol/L (22-30); Chloride 97 mmol/L (98-107); Estimated Creatinine Clearance 5 ml/min; Glucose 77 mg/dl (70-99); Potassium 4.7 mmol/L (3.5-5.1); Sodium 136 mmol/L (135-145); eGFR 4.58
[2023-10-15 07:00] VITALS: BP 168/66
[2023-10-15] MEDS: RENVELA 1600 MG PO ×2 (09:27→11:25)
--- NOTE | 2023-10-15 09:58 | W.PN.HOSP.TC ---
Today's Communication/Plan
-
dispo planning
Assessment / Plan
Assessment / Plan
Physical Exam
General: Well Developed and No Apparent Distress
HEENT: NormoCephalic
Respiratory: Clear
Cardiac: S1/S2 and Regular Rhythm
GI: Non Tender
Musculoskeletal: No Clubbing
Skin: Warm
Neuro: Awake, Alert, Oriented and AO x 3
Hematologic/Lymphatic: No Lymphadenopathy
Psych: Calm
83-year-old male with history of hypertension end-stage renal disease (HD MWF), hyperlipidemia, hypertension, BPH now presents for dialysis needs. Patient has relocated from [place] with last dialysis session on last Sunday, in essence,
missing 2 HD sessions.
PLAN:
#ESRD on HD
-Renal Consulted
-F/u Hepatitis Panel neg
-Nephrology consulted for HD planning
-Cont Sevelamer carbonate
#Hypertension
-HD as per Renal
-Restart Coreg
-Start Nifedipine
#Hyperlipidemia
-statin
#Anemia
-most likely 2/2 to CKD
#BPH
-consult tamsulosin
#DVT ppx
hsq
Anticipated Discharge: Within 24 hours
Subjective/Interval History
-
Date of Service: October 15, 2023
patient frustrated he is in the hospital so long
Objective Data
-
Labs:
Laboratory Results
10/15/23
05:48
WBC 4.4 L
Hgb 8.4 L
Hct 25.0 L
Plt Count 161
Sodium 136
Potassium 4.7
Chloride 97 L
Carbon Dioxide 27
BUN 67 H
Creatinine 10.3 H*
Glucose 77
Calcium 9.4
Vital Signs:
Vital Signs
Temp Pulse Resp BP Pulse Ox
97.5 F 67 18 168/66 99
10/15/23 07:00 10/15/23 07:00 10/15/23 07:00 10/15/23 07:00 10/15/23 07:00
I&O
10/14/23 10/15/23 10/16/23
06:59 06:59 06:59
Intake Total 1200 / 1200 1080 / 1080
Balance 1200 / 1200 1080 / 1080
Review of Systems
-
History Source: Patient
All other systems: Reviewed and negative
Physical Exam
-
General: No Apparent Distress
HEENT: PERRLA
Respiratory: Clear to Auscultation; Negative Wheezes
Cardiac: S1/S2
GI: Soft, Nontender and Nondistended
Musculoskeletal: No Edema
Skin: Warm and Dry; Negative Rash
Neuro: AO x 3
Psych: Calm
Data Reviewed
-
Diagnostic Radiology: Report Reviewed by me
Labs: Labs Reviewed by me
--- NOTE | 2023-10-15 10:53 | CM ---
Addendum entered by Viky Cotton 10/15/23 11:15:
Patient updated with same information at patient request. Please fax to [facility] flow sheets from [phone].
Original Note:
ZE left multiple messages for Max liaison with [facility] and spoke with Blossom at [phone]. Per Blossom patient was just cleared and his chair time would be //sat. Patient is for HD today per chart review. CM updated patient physician.
Per Blossom since patient is for HD today his first appointment with [facility] would be at 6:50 am with arrival at 6:20am. CM will update patient and review IMM. CM will continue to follow for discharge planning needs.
--- NOTE | 2023-10-15 13:41 | W.DS.TRANS ---
DC Summary - Loaders
-
Discharge Instructions:
Discharge Diagnosis/Procedures hemodialysis
Diet Restrict fluids to 48 oz,2 Gram Sodium
Activity As tolerated
Driving Restrictions As prior to admission
Bathing Restrictions None
Instructions:
Stand-Alone Forms:
Changes to Home Medications: Yes
Discharge Medications:
DC Medications w/original date entered in [employer]
atorvastatin 20 mg tablet (Lipitor) 20 mg PO DAILY High Cholesterol 10/08/23
carvedilol 6.25 mg tablet (Coreg) 6.25 mg PO BID Heart Disease/Condition 10/08/23
sertraline 50 mg tablet 50 mg PO DAILY Depression 10/08/23
sevelamer carbonate 800 mg tablet 1,600 mg PO AC Kidney Disease 10/08/23
tamsulosin 0.4 mg capsule (Flomax) 0.4 mg PO DAILY Urinary Issue 10/08/23
nifedipine 30 mg tablet,extended release 30 mg PO DAILY #30 tabs 10/15/23
Home Medication Changes
addition of Nifedipine
Pending Results: No
--- NOTE | 2023-10-15 14:20 | W.DCSUMMARY ---
Discharge Summary
Discharge Data
Date of Admission: 10/08/23
Date of Discharge: 10/15/23
-
Pending Results: No
Hospital Course
Discharging Physician : Dr. Ayesha Tapia
Disposition : Home
Principal Discharge diagnosis : Initiation of outpatient hemodialysis
Hospital Course :
Mr. Brian Rhoades is a 83 yo man with hx essential HTN, HLD, ESRD on HW, BPH who recently moved from [place] without HD in place in [place] and presents to the ER after missing two dialysis sessions, in need for initiation of HD locally.
Triage vitals significant for hypertension. Labs with anemia, Cr 13.6, BUN 82, K 5.0, Na 141. Patient was admitted to medicine with nephrology consulting and received HD in-house. He is discharged on 10/14 after HD set up as outpatient at
[facility], he has a 6:50 AM time slot on /Sun. Patient received HD today pre-discharge.
Nicardipine added to home medication regimen for blood pressure.
Time spent on discharge was 31 minutes.
Important imaging findings :
Procedure findings :
Discharge Plan
-
Patient Disposition: Home (Routine Discharge)
Discharge Diagnosis/Procedures: hemodialysis
Diet: 2 Gram Sodium and Restrict fluids to 48 oz
Activity: As tolerated
Driving Restrictions: As prior to admission
Bathing Restrictions: None
Referrals:
UNKNOWN - PT DOES,NOT KNOW [Family Provider] - in less than 1 week
Prescriptions:
New
nifedipine 30 mg Tablet Extended Release
30 mg PO DAILY Qty: 30 0RF
Continued
carvedilol [Coreg] 6.25 mg Tablet
6.25 mg PO BID
atorvastatin [Lipitor] 20 mg Tablet
20 mg PO DAILY
tamsulosin [Flomax] 0.4 mg Capsule
0.4 mg PO DAILY
sertraline 50 mg Tablet
50 mg PO DAILY
sevelamer carbonate 800 mg Tablet
1,600 mg PO AC
Discharge Orders:
Discharge Patient (As Directed); Ordered 10/15/23
Ordered By: Ayesha Tapia
Discharge Date and Time
Print Language: SWAZI
[2023-10-15] MEDS: RETACRIT 10000 UNITS IV (14:21)
[2023-10-15 14:53] VITALS: BP 149/72
--- NOTE | 2023-10-15 15:10 | W.PN.NEPH.HD ---
Assessment
-
Seen on HD. no complaints. vss, access ok
for dc
Progress Note - Hemodialysis
-
Date of Service: October 15, 2023
Potassium Bath: 2
Calcium Bath: 2.5
Opti-Dialyzer: 160
Ultrafiltration: Other (2kg)
Blood Flow: 400
Dialysate Flow: 600
Heparin: 0
EPO: 70831 units
[2023-10-15 16:16] VITALS: BP 165/80
== END 2023-10-15 17:27 | disposition home or self-care (01) | DRG 682 ==
LOC: 3 WEST ACU 18:52
PROVIDERS: Emergency Medicine; ADMITTING PHYSICIAN Internal Medicine; ATTENDING PHYSICIAN Student in an Organized Health Care Education/Training Program; EMERGENCY PHYSICIAN Student in an Organized Health Care Education/Training Program
PROC: 5A1D70Z Performance of Urinary Filtration, Intermittent, Less than 6 Hours Per Day (ICD-10-PCS; 2023-10-09)
DX: I12.0 Hypertensive chronic kidney disease with stage 5 chronic kidney disease or end stage renal disease (principal); N18.6 End stage renal disease; D61.818 Other pancytopenia; E83.39 Other disorders of phosphorus metabolism; N40.0 Benign prostatic hyperplasia without lower urinary tract symptoms; E78.00 Pure hypercholesterolemia, unspecified; D63.1 Anemia in chronic kidney disease; Z99.2 Dependence on renal dialysis; Z79.899 Other long term (current) drug therapy
CPT/HCPCS: 80048; 80053; 82607; 82728; 83540; 83550; 84100; 84439; 84443; 85025; 85027; 86706; 86803; 87070; 87340; 87389; 93005; 97116; 97162; 97165; 99285; G0257; P9047; Q5106

== ENCOUNTER → 2023-12-13 12:55 | Outpatient (REF) | payer OTHER, SELFPAY ==
[2023-12-13 13:21] LABS: Potassium 5.6 mmol/L (3.5-5.1)
== END ==
LOC: OLAB 12:55
PROVIDERS: ATTENDING PHYSICIAN Specialist
DX: N18.6 End stage renal disease (principal)
CPT/HCPCS: 84132

== ENCOUNTER → 2024-03-24 13:53 | Outpatient (REF) | payer MEDICARE, SELFPAY | LOC: RCS 13:53 | PROVIDERS: ATTENDING PHYSICIAN Internal Medicine Cardiovascular Disease; FAMILY PHYSICIAN Family Medicine | DX: I50.22 Chronic systolic (congestive) heart failure (principal) | CPT/HCPCS: 93306 ==

== ENCOUNTER → 2024-11-28 09:11 | Outpatient (REF) | payer MEDICARE, OTHER, SELFPAY | LOC: HWRAD 09:11 | PROVIDERS: ATTENDING PHYSICIAN Family Medicine | DX: I50.22 Chronic systolic (congestive) heart failure (principal); E78.2 Mixed hyperlipidemia | CPT/HCPCS: 75571 ==

== ENCOUNTER → 2025-03-21 10:11 | Outpatient (REF) | payer MEDICARE, OTHER, SELFPAY ==
[2025-03-21 10:59] LABS: Hematocrit 31.2 % (39.0-52.0); Hemoglobin 10.3 g/dL (13.0-18.0); Mean Corp Hgb Conc. 33.0 g/dL (33.0-37.0); Mean Corpuscular Volume 93.4 fL (80.0-94.0); Nucleated Red Blood Cells % 0 % (-); Platelet Count 113 10^3/uL (130-400); Red Cell Dist. Width 17.2 % (11.5-14.5)
[2025-03-21 11:56] LABS: PSA, Total - Screen 0.90 ng/ml (0.0-4.0)
[2025-03-21 12:06] LABS: ALT (SGPT) 32 U/L (0-50); AST (SGOT) 31 U/L (17-59); Albumin 3.6 g/dl (3.5-5.0); Alkaline Phosphatase 67 U/L (38-126); Blood Urea Nitrogen 38 mg/dl (9-20); Calcium 9.4 mg/dl (8.4-10.2); Carbon Dioxide 36 mmol/L (22-30); Chloride 94 mmol/L (98-107); Glucose 82 mg/dl (70-99); HDL Cholesterol 50 mg/dl; LDL Cholesterol, Calculated 32 mg/dl; Potassium 4.6 mmol/L (3.5-5.1); Sodium 137 mmol/L (135-145); Total Protein 5.9 g/dl (6.3-8.2); Very Low Density Lipoprotein 11 mg/dl (0-30); eGFR 8.64
[2025-03-21 12:15] LABS: Vitamin B12 279 pg/ml (239-931)
== END ==
LOC: REG 10:11
PROVIDERS: ATTENDING PHYSICIAN Family Medicine
DX: E78.2 Mixed hyperlipidemia (principal); I10 Essential (primary) hypertension; Z85.46 Personal history of malignant neoplasm of prostate; Z79.899 Other long term (current) drug therapy; R79.9 Abnormal finding of blood chemistry, unspecified; Z01.89 Encounter for other specified special examinations; Z12.5 Encounter for screening for malignant neoplasm of prostate
CPT/HCPCS: 36415; 80053; 80061; 82607; 84439; 84443; 85025; G0103